=== PATIENT | male | born 1990 | race Caucasian/White ===

== ENCOUNTER 2017-03-11 13:29 | Emergency (ER) | payer OTHER ==
--- NOTE | 2017-03-11 14:05 | EDPHY ---
H & P Stated Complaint: binge drinking/cocaine/last drink last night/n/v Time Seen by Provider: 03/11/17 14:05 HPI/ROS: CHIEF COMPLAINT: Nausea, vomiting, symptoms of anxiety HISTORY OF PRESENT ILLNESS: The patient presents to the ED with nausea, vomiting and symptoms of anxiety. The patient reports his symptoms are a result of going through alcohol withdrawal. The patient reports his last drink was last night. He has been binge drinking for the past 4 days. He does have a history of anxiety and stop taking BuSpar and Celexa several days ago. The patient reportedly was evaluated at [facility] secondary to suicidal ideation. He was discharged from the facility as he was able to contract for safety. The patient currently denies any suicidal or homicidal ideation. The patient was seen at [facility] requesting alcohol detox however was referred to the ED in the setting of active vomiting and anxiety. The patient reports he has been using cocaine. The patient denies any chest pain or shortness of breath. The patient denies any additional acute medical complaints. REVIEW OF SYSTEMS: A comprehensive 10 point review of systems is otherwise negative aside from elements mentioned in the history of present illness. Source: Patient Exam Limitations: No limitations - Personal History Current Tetanus/Diphtheria Vaccine: Yes - Medical/Surgical History Hx Asthma: No Hx Chronic Respiratory Disease: No Hx Diabetes: No Hx Cardiac Disease: No Hx Renal Disease: No Hx Cirrhosis: No Hx Alcoholism: Yes Hx HIV/AIDS: No Hx Splenectomy or Spleen Trauma: No Other PMH: panic disorder/anxiety - Social History Smoking Status: Current every day smoker - Physical Exam Exam: General Appearance: Alert, retching, cooperative Eyes: Pupils equal and round no pallor or injection ENT, Mouth: Mucous membranes moist Respiratory: There are no retractions, lungs are clear to auscultation Cardiovascular: Tachycardic Gastrointestinal: Abdomen is soft and nontender, no masses, bowel sounds normal Neurological: A&O, normal motor function, normal sensory exam, normal cranial nerves Skin: Warm and dry, no rashes Musculoskeletal: Neck is supple nontender Extremities: symmetrical, full range of motion Psychiatric: Patient is oriented X 3, there is no agitation, endorses anxiety, denies suicidal or homicidal ideation, cooperative, clean shaven, normal thought content and process Constitutional: Initial Vital Signs Temperature (C) 37.2 C 03/11/17 13:32 Heart Rate 125 H 03/11/17 13:32 Respiratory Rate 22 H 03/11/17 13:32 Blood Pressure 143/121 H 03/11/17 13:32 O2 Sat (%) 93 03/11/17 13:32 O2 Delivery Mode Room Air Allergies/Adverse Reactions: No Known Allergies Allergy (Unverified 03/11/17 13:32) Home Medications: Medication Instructions Recorded Buspar (*) 03/11/17 Paxil 03/11/17 Medical Decision Making ED Course/Re-evaluation: The patient presents the emergency department with mild alcohol withdrawal. The patient was treated with Zofran and nausea. He received 2 L of normal saline. The patient has no complaints of suicidal homicidal ideation. I re-evaluated the patient at 3:30 p.m.. He is feeling much better. He would like to be discharged back to the [facility]. He will be given 6 Librium to take with him to that facility. Differential Diagnosis: Differential diagnosis considered includes alcohol withdrawal, dehydration, metabolic abnormality, vomiting - Data Points Laboratory Results: Laboratory Results 03/11/17 14:26 03/11/17 14:26 03/11/17 03/11/17 14:26 14:26 WBC 8.18 10^3/uL 10^3/uL (3.80-9.50) RBC 4.84 10^6/uL 10^6/uL (4.40-6.38) Hgb 15.2 g/dL g/dL (13.7-17.5) Hct 44.1 % % (40.0-51.0) MCV 91.1 fL fL (81.5-99.8) MCH 31.4 pg pg (27.9-34.1) MCHC 34.5 g/dL g/dL (32.4-36.7) RDW 12.2 % % (11.5-15.2) Plt Count 226 10^3/uL 10^3/uL (150-400) MPV 9.7 fL fL (8.7-11.7) Neut % (Auto) 79.1 % H % (39.3-74.2) Lymph % (Auto) 16.4 % % (15.0-45.0) Trigg % (Auto) 3.7 % L % (4.5-13.0) Eos % (Auto) 0.0 % L % (0.6-7.6) Baso % (Auto) 0.4 % % (0.3-1.7) Nucleat RBC Rel Count 0.0 % % (0.0-0.2) Absolute Neuts (auto) 6.48 10^3/uL 10^3/uL (1.70-6.50) Absolute Lymphs (auto) 1.34 10^3/uL 10^3/uL (1.00-3.00) Absolute Monos (auto) 0.30 10^3/uL 10^3/uL (0.30-0.80) Absolute Eos (auto) 0.00 10^3/uL L 10^3/uL (0.03-0.40) Absolute Basos (auto) 0.03 10^3/uL 10^3/uL (0.02-0.10) Absolute Nucleated RBC 0.00 10^3/uL 10^3/uL (0-0.01) Immature Gran % 0.4 % % (0.0-1.1) Immature Gran # 0.03 10^3/uL 10^3/uL (0.00-0.10) Sodium 138 mEq/L mEq/L (134-144) Potassium 5.0 mEq/L mEq/L (3.5-5.2) Chloride 100 mEq/L mEq/L (97-110) Carbon Dioxide 13 mEq/l L mEq/l (22-31) Anion Gap 25 mEq/L H mEq/L (8-16) BUN 14 mg/dL mg/dL (7-23) Creatinine 0.9 mg/dL mg/dL (0.7-1.3) Estimated GFR > 60 Glucose 166 mg/dL H mg/dL (70-100) Calcium 9.2 mg/dL mg/dL (8.5-10.4) Total Bilirubin 0.8 mg/dL mg/dL (0.1-1.4) Conjugated Bilirubin 0.4 mg/dL mg/dL (0.0-0.5) Unconjugated Bilirubin 0.4 mg/dL mg/dL (0.0-1.1) AST 101 IU/L H IU/L (17-59) ALT 70 IU/L IU/L (21-72) Alkaline Phosphatase 57 IU/L IU/L (38-126) Total Protein 7.8 g/dL g/dL (6.3-8.2) Albumin 4.9 g/dL g/dL (3.5-5.0) Lipase 81 IU/L IU/L (23-300) Medications Given: Discontinued Medications Sodium Chloride (Ns) 1,000 mls @ 0 mls/hr IV EDNOW ONE; Wide Open PRN Reason: Protocol Stop: 03/11/17 14:19 Last Admin: 03/11/17 14:25 Dose: 1,000 mls Lorazepam (Ativan Injection) 1 mg IVP EDNOW ONE Stop: 03/11/17 14:53 Last Admin: 03/11/17 15:10 Dose: 1 mg Ondansetron HCl (Zofran) 4 mg IVP EDNOW ONE Stop: 03/11/17 14:19 Last Admin: 03/11/17 14:26 Dose: 4 mg Departure - Departure Disposition: Home, Routine, Self-Care Clinical Impression: Alcohol withdrawal syndrome, Vomiting, Dehydration Condition: Good Instructions: Alcohol Withdrawal (ED) Additional Instructions: 1. Please follow-up at the [facility] for further assistance with your detox. 2. Please return to the ED for severe pain, fever, vomiting or worsening symptoms. Referrals: [facility] [Outside] - As per Instructions
[2017-03-11] MEDS ORDERED: NS 1,000 ML IV ONE (14:18)
[2017-03-11] MEDS ORDERED: ONDANSETRON 4 MG/2 ML VIAL IVP ONE (14:18)
[2017-03-11 14:34] LABS: % IMMATURE GRANULYOCYTES 0.4 % (0.0-1.1); ABSOLUTE IMMATURE GRANULOCYTES 0.03 10^3/uL (0.00-0.10); ADD DIFF? NO; ADD MORPH? NO; ADD SCAN? NO; ATYPICAL LYMPHOCYTE FLAG 10 (0-99); FRAGMENT RBC FLAG 0 (0-99); HEMATOCRIT 44.1 % (40.0-51.0); HEMOGLOBIN 15.2 g/dL (13.7-17.5); LEFT SHIFT FLG 0 (0-99); LIPEMIA HEMOLYSIS FLAG 90 (0-99); MEAN CELL HEMOGLOBIN 31.4 pg (27.9-34.1); MEAN CELL HEMOGLOBIN CONCENTR. 34.5 g/dL (32.4-36.7); MEAN CELL VOLUME 91.1 fL (81.5-99.8); MEAN PLATELET VOLUME 9.7 fL (8.7-11.7); PLATELET CLUMPS FLAG 0 (0-99); PLATELET COUNT 226 10^3/uL (150-400); RED BLOOD CELL COUNT 4.84 10^6/uL (4.40-6.38); RED CELL DISTRIBUTION WIDTH 12.2 % (11.5-15.2)
[2017-03-11 14:50] LABS: ALANINE AMINOTRANSFERASE 70 IU/L (21-72); ALBUMIN 4.9 g/dL (3.5-5.0); ALKALINE PHOSPHATASE 57 IU/L (38-126); ANION GAP 25 mEq/L (8-16); ASPARTATE AMINOTRANSFERASE 101 IU/L (17-59); BILIRUBIN,TOTAL 0.8 mg/dL (0.1-1.4); BILIRUBIN-CONJUGATED 0.4 mg/dL (0.0-0.5); BILIRUBIN-UNCONJUGATED 0.4 mg/dL (0.0-1.1); CALCIUM 9.2 mg/dL (8.5-10.4); CARBON DIOXIDE 13 mEq/l (22-31); CHLORIDE 100 mEq/L (97-110); CREATININE 0.9 mg/dL (0.7-1.3); GLOMERULAR FILTRATION RATE > 60; GLUCOSE 166 mg/dL (70-100); SODIUM 138 mEq/L (134-144); TOTAL PROTEIN 7.8 g/dL (6.3-8.2)
[2017-03-11] MEDS ORDERED: LORazepam 2 MG/ML INJ IVP ONE (14:52)
[2017-03-11] MEDS ORDERED: CHLORDIAZEPOXIDE 25MG PREPK#6 BTL TAKEHOME ONE (15:44)
[2017-03-11 16:08] VITALS: BP 122/95; PULSE 101; RESP 18; TEMP 98.4; O2SAT 96
== END 2017-03-11 16:06 | disposition home or self-care (01) ==
DX: E86.0 Dehydration (principal); F10.239 Alcohol dependence with withdrawal, unspecified; F17.200 Nicotine dependence, unspecified, uncomplicated; E86.9 Volume depletion, unspecified
CPT/HCPCS: 96374; J2060; J2405